=== PATIENT | male | born 1955 ===

== ENCOUNTER 2018-04-07 10:42 | Emergency (ER) | payer OTHER, MEDICAID ==
[~2018-04-07] VITALS: Ht 177.8 cm; Wt 64.0 kg
[2018-04-07 10:47] VITALS: BP 118/58
== END 2018-04-07 11:45 | disposition home or self-care (01) ==
LOC: ED 10:42
DX: L03.115 Cellulitis of right lower limb (principal); E05.90 Thyrotoxicosis, unspecified without thyrotoxic crisis or storm